=== PATIENT | male | born 2005 | race Caucasian/White ===

== ENCOUNTER 2023-05-10 17:18 | Emergency (ER) | payer OTHER, SELFPAY ==
[2023-05-10 17:19] VITALS: BP 150/100
[2023-05-10 17:42] LABS: % Basophils 0.2 % (0-2); % Immature Granulocytes 0.4 % (0-0.5); % Lymphocytes 13.9 % (20.5-51.1); % Monocytes 6.4 % (1.7-9.3); % Neutrophils 78.1 % (42.2-75.2); Absolute Eosinophils 0.1 10^3/uL (0-0.7); Absolute Immature Granulocytes 0.1 10^3/uL (0-0.05); Absolute Monocytes 0.9 10^3/uL (0.1-0.6); Absolute Neutrophils 11.2 10^3/uL (1.4-6.5); Hematocrit 43.1 % (39.0-52.0); Hemoglobin 14.8 g/dL (13.0-18.0); Mean Corp Hgb Conc. 34.3 g/dL (33.0-37.0); Mean Corpuscular Hgb 30.5 pg (27.0-31.0); Mean Corpuscular Volume 88.9 fL (80.0-94.0); Mean Platelet Volume 10.1 fL (7.4-10.4); Nucleated Red Blood Cells % 0 % (-); Platelet Count 292 10^3/uL (130-400); Red Blood Cell Count 4.85 10^6/uL (4.70-6.10); Red Cell Dist. Width 12.2 % (11.5-14.5); White Blood Cell Count 14.3 10^3/uL (4.8-10.8)
[2023-05-10 17:44] LABS: Urine Albumin Negative (Neg - Trace); Urine Bilirubin Negative (Negative); Urine Character Clear (Clear); Urine Color Yellow; Urine Glucose Negative (Negative); Urine Ketone Negative (Negative); Urine Leukocyte Negative (Negative); Urine Nitrite Negative (Negative); Urine Occult Blood Negative (Negative); Urine Specific Gravity 1.005 (<1.030); Urine Urobilinogen Negative (Neg - 1+); Urine pH 6.5 (5.0-9.0)
[2023-05-10 17:53] LABS: ALT (SGPT) 25 U/L (0-50); AST (SGOT) 22 U/L (17-59); Albumin 4.5 g/dl (3.5-5.0); Alkaline Phosphatase 71 U/L (38-126); Blood Urea Nitrogen 18 mg/dl (9-20); Calcium 10.5 mg/dl (8.4-10.2); Carbon Dioxide 28 mmol/L (22-30); Chloride 98 mmol/L (98-107); Glucose 87 mg/dl (70-99); Potassium 4.4 mmol/L (3.5-5.1); Sodium 139 mmol/L (135-145); Total Bilirubin 0.7 mg/dl (0.2-1.3); Total Protein 6.9 g/dl (6.3-8.2); eGFR > 60.00
[2023-05-10 18:06] VITALS: BMI 31.3
[2023-05-10 18:06] LABS: Amphetamines Negative (Negative); Barbiturates Negative (Negative); Benzodiazepines Negative (Negative); Buprenorphine Negative (Negative); Cocaine Negative (Negative); Marijuana Negative (Negative); Methadone Negative (Negative); Methamphetamines Negative (Negative); Opiates Negative (Negative); Phencyclidine Negative (Negative); Tricyclic Antidepressants Negative (Negative)
[2023-05-10 18:08] LABS: COVID-19 Antigen Negative (Negative)
--- NOTE | 2023-05-10 19:53 | ED.GENMED ---
History of Present Illness
General
Chief Complaint: Psychiatric Problem
Source: patient
Exam Limitations: none
Time Seen by Provider: 05/10/23 19:17
Nursing documentation reviewed up to this point in time: agreed with
Travel History
Have you had any contact with someone who has COVID-19?: No
Do you have any symptoms of coronavirus? Fever > 100 degrees, chills, cough, shortness of breath, sore throat, loss of taste or smell, muscle aches, or headache?: No
History of Present Illness
History of Present Illness:
pt is a 18 y/o M with h/o ADHD, anxiety, SI, autism
here for SI and anger issues
presented to crisis initially but was complaining of a headache and nauesa
pt says this is his typical patternw hen he has stress/depression, he tends to get upset and angry followed by headache and nauesa. pt has not had any vision changes, head injuries, vomiting, confusion, weakness. no changes to his meds
he drank juice and water at crisis and did not vomit
he is hungry now
headahce is mild and 3/10 global
nothing makes it worse
he is asking for a sandwich
Past History
Past History
ED Past Medical History: Psychiatric and Other (ADHD)
ED Past Surgical History: Orthopedic
Patient has exhibited threatening behavior?: No
PSI?: No
Social History
Tobacco: Non-smoker
Alcohol: None
Drug: None
Review of Systems
Review of Systems
Allergies reviewed?: Yes
All Other Systems: Not applicable
Phy Exam
Physical Exam
Physical Exam:
GENERAL: Alert , in no apparent distress
lights off in the room but with lights on no photophobia
HEAD: NCAT
EYE: pupils equal and reactive, no nystagmus, no photophobia
NECK: Supple,full rom, nontender
ENT: o/p clr, mmm.
CARDIAC: Regular rate and rhythm . no edema
LUNGS: Clear breath sounds bilaterally, no acute respiratory distress, no wheezes/rales/rhonchi
ABDOMEN: Soft, without focal tenderness, no r/g, no cvat
NEUROLOGICAL: Alert and orientedx 4, cn intact, no facial asymmetry, 5/5 strength in UE/LE, sensation intact, romberg neg, ambulates without assistance, neg pronator drift
SKIN: Warm and dry, skin intact.
MUSCULOSKELETAL: No edema, well perfused.
PSYCH: flat affect, no external stimuli, cooperative
Course
Orders/Labs/Results
Orders:
Orders
05/10/23 17:28
COVID-19 Antigen Urgent
Source: Nasal Swab
Complete Blood Count/With Diff Urgent
Comprehensive Metabolic Panel Urgent
05/10/23 17:32
Urinalysis Reflex To Culture Urgent
Date Specimen was Collected: 05/10/23
Time Specimen was Collected: 17:23
Urine Drug Abuse Screen Urgent
Date Specimen was Collected: 05/10/23
Time Specimen was Collected: 17:23
05/10/23 19:52
Acetaminophen [Tylenol] 650 mg .ROUTE .STK-MED ONE
05/10/23 19:55
Acetaminophen [Tylenol] 650 mg PO NOW STA
Abnormal Lab Results
05/10/23
17:28
WBC 14.3 H 10^3/uL
(4.8-10.8)
Abs Immat Gran (auto) 0.1 H 10^3/uL
(0-0.05)
Absolute Neuts (auto) 11.2 H 10^3/uL
(1.4-6.5)
Absolute Monos (auto) 0.9 H 10^3/uL
(0.1-0.6)
Neutrophils % 78.1 H %
(42.2-75.2)
Lymphocytes % 13.9 L %
(20.5-51.1)
Calcium 10.5 H mg/dl
(8.4-10.2)
05/10/23 17:28
05/10/23 17:28
Vital Signs
Initial and Last Documented VS:
Initial Vital Signs
Temp Pulse Resp BP Pulse Ox
98.0 F 74 16 150/100 98
05/10/23 17:19 05/10/23 17:19 05/10/23 17:19 05/10/23 17:19 05/10/23 17:19
Last Documented Vital Signs
Temp Pulse Resp BP Pulse Ox
98.2 F 76 18 146/96 96
05/10/23 20:02 05/10/23 20:02 05/10/23 20:02 05/10/23 20:02 05/10/23 20:02
MDM/Problems Addressed
Differential Diagnosis Includes:
anxiety, headache, depression, viral syndrome
MDM/Problems Addressed:
18 y/o M with h/o anxiety, adhd, some intellectual delay
here from crisis for medical clearance
he as having some SI and says he was feeling upset and angry and anxious which usually leads to headache and nausea
so when he complained of these symptoms, he was sent over for eval
he feels better already and is asking for food
pt is afebrile, nontoxic appearing
no photophobia
neuro intact
abdomen nontender
no hallucinations
wbc appreciated 14, which could be stress reactant
mild bp elevation
afebrile
tolerated po fluids
d/c back to crisis
*Critical Care Note
Total Time (30-74mins, 75-104mins- exclusive of procedures): Not Applicable
ED Attending Note
-
Portions of this chart may have been created with voice recognition software.� Occasional wrong word or��sound alike� substitutions may have occurred due to the inherent limitations of voice recognition software.
Discharge Plan
Departure
Date of Disposition: 05/10/23
Time of Disposition: 20:10
Patient with high blood pressure during this ER visit?: Yes
Condition: Fair
Covid-19: Negative COVID-19
Discharge Problem:
Nausea, Depression, Elevated blood pressure reading
Instructions: Depression, Adult (DC), Nausea and Vomiting, Adult (DC), BLOOD PRESSURE
Referrals:
NONE,* [Family Provider] -
Activity Restrictions/Additional Instructions:
Go directly to the crisis center. Your nausea and headache seem to be related to your depression. Your blood work showed very mild elevation of your white blood cell count which could just be stress. You tested negative for COVID. Your blood
pressure was borderline elevated. Have this rechecked. Return for any concerns like fever, vomiting, inability to eat, severe headache or any concerns.
Interventions
Interventions:
*Risk Screen - Suicide Last Done: 05/10/23 20:20
*General Assessment Last Done: 05/10/23 18:06
*Neglect/Abuse Screening Last Done: 05/10/23 20:20
ED- Fall Risk Assessment Last Done: 05/10/23 20:20
*ED COVID-19 Vaccine History Last Done: 05/10/23 17:19
*Nursing Disposition Last Done: 05/10/23 20:20
IX-Mggnon-Lldloxdhfc Assessment Last Done: 05/10/23 17:53
ED-Psychological Assessment Last Done: 05/10/23 17:53
Discharge Date and Time
Discharge Date/Time: 05/10/23 20:20
[2023-05-10] MEDS: TYLENOL 650 MG PO (19:56)
[2023-05-10 20:02] VITALS: BP 146/96
== END 2023-05-10 20:20 ==
LOC: EMR 17:18
PROVIDERS: Emergency Medicine; EMERGENCY PHYSICIAN Emergency Medicine
DX: R11.0 Nausea (principal); F32.A Depression, unspecified; R03.0 Elevated blood-pressure reading, without diagnosis of hypertension; F90.9 Attention-deficit hyperactivity disorder, unspecified type; F41.9 Anxiety disorder, unspecified; R45.851 Suicidal ideations; F84.0 Autistic disorder
CPT/HCPCS: 99283; 80053; 80306; 81003; 85025; 87811